=== PATIENT | female | born 1955 | race Caucasian/White ===

== ENCOUNTER 2019-05-16 12:55 | Emergency (ER) | payer OTHER ==
[2019-05-16 13:50] VITALS: BP 168/80; PULSE 72; TEMP 97.2; BMI 25.2
[2019-05-16] MEDS ORDERED: ONDANSETRON 4 MG/2 ML VIAL IVPUSH ONE (14:01)
[2019-05-16] MEDS ORDERED: MECLIZINE HCL 25 MG TABLET (FP) PO ONE (14:01)
--- NOTE | 2019-05-16 15:07 | PDOC ---
History of Present Illness - General Chief Complaint: Lightheaded Stated Complaint: Lightheaded Time Seen by Provider: 05/16/19 13:59 History Source: Patient Exam Limitations: No Limitations - History of Present Illness Initial Comments: 05/16/19 15:32 64-year-old female presents to ED with lightheadedness since awakening this morning. Patient states symptoms are worsened with standing causing her to feel nauseous and vomited twice. Patient states did not have any visual changes or complaints of headache or unilateral weakness. Patient does state history of vertigo but numerous years ago and was told it may be due to impacted cerumen of the right ear. Patient denies any fever, chills, throat pain, neck pain, chest pain or shortness of breath. Is this a multiple visit Asthma Patient?: No Timing/Duration: intermittent Severity: moderate Associated Symptoms: reports: nausea/vomiting, other (dizziness). denies: headaches Past History - Travel Traveled outside of the country in the last 30 days: No Close contact w/someone who was outside of country & ill: No - Past Medical History Allergies/Adverse Reactions: Allergies Allergy/AdvReac Type Severity Reaction Status Date / Time No Known Allergies Allergy Verified 05/16/19 13:50 Home Medications: Ambulatory Orders Meclizine HCl [Antivert -] 25 mg PO TID PRN #21 tablet 05/16/19 COPD: No - Psycho Social/Smoking Cessation Hx Smoking History: Never smoked Have you smoked in the past 12 months: No Information on smoking cessation initiated: No Hx Alcohol Use: No Drug/Substance Use Hx: No Patient Lives Alone: No Lives with/in: spouse/SO Review of Systems - Review of Systems Able to Perform ROS?: Yes Is the patient limited French proficient: No Constitutional: No: Symptoms Reported, Weakness HEENTM: No: Symptoms Reported Respiratory: No: Symptoms reported Cardiac (ROS): Yes: Lightheadedness ABD/GI: Yes: Nausea, Vomiting : No: Symptoms Reported Musculoskeletal: No: Symptoms Reported Integumentary: No: Symptoms Reported Neurological: Yes: Dizziness Endocrine: No: Symptoms Reported Hematologic/Lymphatic: No: Symptoms Reported *Physical Exam - Vital Signs Last Vital Signs Temp Pulse Resp BP Pulse Ox 97.2 F L 72 16 168/80 100 05/16/19 13:00 05/16/19 13:00 05/16/19 13:00 05/16/19 13:00 05/16/19 13:00 - Physical Exam General Appearance: Yes: Nourished, Appropriately Dressed. No: Apparent Distress HEENT: positive: EOMI, Pharynx Normal. negative: TMs Normal (impacted hard yellow cerumen occluding rt tm), Pale Conjunctivae Neck: positive: Supple Respiratory/Chest: positive: Lungs Clear, Normal Breath Sounds. negative: Respiratory Distress, Accessory Muscle Use Cardiovascular: positive: Regular Rhythm, Regular Rate. negative: Murmur Vascular Pulses: Dorsalis-Pedis (R): 2+, Doralis-Pedis (L): 2+ Gastrointestinal/Abdominal: positive: Soft. negative: Tenderness Extremity: positive: Normal Inspection Integumentary: positive: Normal Color, Warm, Moist Neurologic: positive: Motor Strength 5/5 (ambulatory), Other (- hallpikes , subjective c/o dizziness with position change) Heart Score/ECG Review - ECG Intrepretation Rhythm: Regular Rhythm (nsr [address] elevation depression) ED Treatment Course - LABORATORY CBC & Chemistry Diagram: 05/16/19 16:00 05/16/19 15:15 - RADIOLOGY Radiology Studies Ordered: Category Date Time Status HEAD CT WITHOUT CONTRAST [CT] Stat CT Scan 05/16/19 14:00 Ordered CHEST X-RAY PORTABLE* [RAD] Stat Radiology 05/16/19 14:01 Ordered Medical Decision Making - Medical Decision Making 05/16/19 14:37 CC: Intermittent dizziness with nausea upon upright position no complaints of headache or weakness. History of vertigo but numerous years ago and does not have meclizine at home. Patient states similar symptoms and was diagnosed by her PCP with no imaging including CT done at the time. Exam: Negative Hallpike's but did complain of increasing dizziness and nausea when going from a supine to sitting position vital signs stable patient actively vomiting up prior to my arrival. Plan: Head CT, labs, EKG, meclizine, Zofran. 05/16/19 17:30 Laboratory Tests 05/16/19 05/16/19 05/16/19 15:15 16:00 16:00 WBC 11.3 H Hgb 14.0 Hct 42.8 Absolute Neuts (auto) 8.5 H Monocytes % 2.5 L Sodium 137 Potassium 4.6 Chloride 101 Carbon Dioxide 27 Anion Gap 9 BUN 8.8 Random Glucose 111 H Calcium 10.3 H Magnesium 2.2 Total Bilirubin 0.4 AST 23 ALT 24 Alkaline Phosphatase 103 Creatine Kinase 97 Troponin I < 0.02 Total Protein 8.5 H Albumin 4.1 Urine pH Ur Specific [place] Urine Nitrite Urine Bilirubin Urine Urobilinogen Ur Leukocyte Esterase 05/16/19 16:40 WBC Hgb Hct Absolute Neuts (auto) Monocytes % Sodium Potassium Chloride Carbon Dioxide Anion Gap BUN Random Glucose Calcium Magnesium Total Bilirubin AST ALT Alkaline Phosphatase Creatine Kinase Troponin I Total Protein Albumin Urine pH >= 9.0 H Ur Specific [place] 1.008 L Urine Nitrite Negative Urine Bilirubin Negative Urine Urobilinogen 0.2 Ur Leukocyte Esterase Negative 05/16/19 17:34 Patient states feeling better patient discharged home with meclizine and recommendations to follow-up with ENT for impacted cerumen. Patient states has cerumen oil at home Discharge - Discharge Information Problems reviewed: Yes Clinical Impression/Diagnosis: Impacted cerumen, Vertigo Condition: Improved Disposition: HOME - Additional Discharge Information Prescriptions: Meclizine HCl [Antivert -] 25 mg PO TID PRN #21 tablet PRN Reason: Vertigo - Follow up/Referral Referrals: Bobby Galdamez MD [Primary Care Provider] - Wang Wood MD [Staff Physician] - - Patient Discharge Instructions Patient Printed Discharge Instructions: Cerumen Impaction, DI for Benign Paroxysmal Positional Vertigo Additional Instructions: Take meclizine as needed when you feel dizzy and drink plenty of water with it. Please also get up in increments from lying to standing position. Follow-up with referred ENT specialist. - Post Discharge Activity
--- NOTE | 2019-05-16 15:19 | PDOC ---
*Physical Exam - Vital Signs Last Vital Signs Temp Pulse Resp BP Pulse Ox 97.2 F L 72 16 168/80 100 05/16/19 13:00 05/16/19 13:00 05/16/19 13:00 05/16/19 13:00 05/16/19 13:00 ED Treatment Course - LABORATORY CBC & Chemistry Diagram: 05/16/19 16:00 05/16/19 15:15 Medical Decision Making - Medical Decision Making 05/16/19 15:19 Pt seen by Midlevel Provider under my direct supervision I was available for consultation Ancillary studies reviewed I agree with plan as outlined by Midlevel Provider EKG: Twelve-lead EKG was performed and reviewed by me. There is normal sinus rhythm with a normal rate. The axis is normal. The intervals are normal. There are no ST or T wave abnormalities. Impression: Normal twelve-lead EKG 05/16/19 17:38 Discharge - Discharge Information Problems reviewed: Yes Clinical Impression/Diagnosis: Impacted cerumen, Vertigo Condition: Improved Disposition: HOME - Additional Discharge Information Prescriptions: Meclizine HCl [Antivert -] 25 mg PO TID PRN #21 tablet PRN Reason: Vertigo - Follow up/Referral Referrals: Bobby Galdamez MD [Primary Care Provider] - Wang Wood MD [Staff Physician] - - Patient Discharge Instructions Patient Printed Discharge Instructions: Cerumen Impaction, DI for Benign Paroxysmal Positional Vertigo Additional Instructions: Take meclizine as needed when you feel dizzy and drink plenty of water with it. Please also get up in increments from lying to standing position. Follow-up with referred ENT specialist. - Post Discharge Activity
[2019-05-16] MEDS ORDERED: ONDANSETRON *ODT* 4 MG TABLET ONE (15:47)
[2019-05-16] MEDS ORDERED: MECLIZINE HCL 25 MG TABLET (FP) ONE (15:47)
[2019-05-16 16:16] LABS: BASO % 0.9 % (0-2.0); EOS % 0.5 % (0-4.5); HEMATOCRIT 42.8 % (32.4-45.2); LYMPH % 20.6 % (8-40); MCHC 32.8 g/dl (32.0-36.0); MEAN CELL VOLUME 88.4 fl (80-96); MEAN PLT VOLUME 8.9 fl (7.5-11.1); MONO % 2.5 % (3.8-10.2); NEUT % 75.5 % (42.8-82.8); PLATELET COUNT 412 K/MM3 (134-434); RBC 4.84 M/mm3 (3.60-5.2); RDW 13.4 % (11.6-15.6); WHITE BLOOD COUNT 11.3 K/mm3 (4.0-10.0)
[2019-05-16 17:03] LABS: PH,URINE >= 9.0 (5.0-8.0); URINE APPEARANCE CLEAR; URINE BILIRUBIN NEGATIVE (NEGATIVE); URINE COLOR YELLOW; URINE GLUCOSE (UA) NEGATIVE (NEGATIVE); URINE KETONE NEGATIVE (NEGATIVE); URINE LEUK ESTERASE NEGATIVE (NEGATIVE); URINE NITRITE NEGATIVE (NEGATIVE); URINE PROTEIN NEGATIVE (NEGATIVE); URINE UROBILINOGEN 0.2 mg/dL (0.2-1.0)
[2019-05-16 17:11] LABS: ALBUMIN 4.1 g/dl (3.4-5.0); ALK PHOS 103 U/L (45-117); ANION GAP 9 MMOL/L (8-16); BILIRUBIN,TOTAL 0.4 mg/dL (0.2-1); BLOOD UREA NITROGEN 8.8 mg/dL (7-18); CALCIUM 10.3 mg/dL (8.5-10.1); CHLORIDE 101 mmol/L (98-107); CO2 27 mmol/L (21-32); CREATININE 0.8 mg/dL (0.55-1.3); GLUCOSE,RANDOM 111 mg/dL (74-106); POTASSIUM 4.6 mmol/L (3.5-5.1); SGOT/AST 23 U/L (15-37); SGPT/ALT 24 U/L (13-61); SODIUM 137 mmol/L (136-145); TOT PROT 8.5 g/dl (6.4-8.2)
--- NOTE | 2019-05-17 12:52 | EKG ---
Test Reason : Blood Pressure : / mmHG Vent. Rate : 065 BPM Atrial Rate : 065 BPM P-R Int : 136 ms QRS Dur : 082 ms QT Int : 424 ms P-R-T Axes : 060 060 019 degrees QTc Int : 440 ms NORMAL SINUS RHYTHM NORMAL ECG NO PREVIOUS ECGS AVAILABLE Confirmed by Sarmad Arora MD ([id number]) on 05/17/2019 12:52:07 PM Referred By: Confirmed By:Sarmad Arora MD
== END 2019-05-16 18:05 | disposition home or self-care (01) ==
LOC: JER 12:55
PROC: 3E033GC Introduction of Other Therapeutic Substance into Peripheral Vein, Percutaneous Approach (ICD-10-PCS; principal; 2019-05-16)
DX: H81.10 Benign paroxysmal vertigo, unspecified ear (principal); H61.21 Impacted cerumen, right ear
CPT/HCPCS: 36415; 70450-TC; 80053; 81003; 82550; 83735; 84484; 85025; 93005; 93010; 96374; 99282-25